=== PATIENT | male | born 1950 | race Caucasian/White ===

== ENCOUNTER → 2016-11-15 | Outpatient (CLI) | payer OTHER | LOC: MMPC 09:00 | DX: E80.21 Acute intermittent (hepatic) porphyria (principal); I10 Essential (primary) hypertension; E55.9 Vitamin D deficiency, unspecified; E66.9 Obesity, unspecified; G47.33 Obstructive sleep apnea (adult) (pediatric); N20.2 Calculus of kidney with calculus of ureter; F32.9 Major depressive disorder, single episode, unspecified; G25.81 Restless legs syndrome; Z23 Encounter for immunization | CPT/HCPCS: 90732; 99213; G0463 ==

== ENCOUNTER → 2017-02-16 | Outpatient (CLI) | payer OTHER ==
--- NOTE | 2017-02-16 11:28 | DI ---
LEFT KNEE, 02/16/2017 10:45 AM: Clinical History: Left knee pain. Previous Exam: 08/13/2007. 3 views are submitted. The AP projection is a weightbearing view. The patient is status post total le ft knee replacement. The prosthetic device articulates normally. There is no evidence of loosening of the prosthetic device. Since the previous exam, calcification has developed on the medial aspect of the medial femoral condyle. This is at the location of the attachment of the medial collateral ligame nt. Reading: Status post total left knee replacement. The prosthetic device articulates normally and there is no e vidence of loosening of the prosthetic device.
== END ==
LOC: ORTHO 11:25
PROVIDERS: ATTEND Orthopaedic Surgery
DX: M25.562 Pain in left knee (principal); M25.462 Effusion, left knee; Z96.652 Presence of left artificial knee joint
CPT/HCPCS: 73562; 99203

== ENCOUNTER → 2017-02-16 | Outpatient (CLI) | payer OTHER ==
[2017-02-16 11:54] LABS: HEMATOCRIT 44.9 % (42.0-52.0); HEMOGLOBIN 16.3 g/dL (14.0-18.0); MEAN CORPUSCULAR HEMOGLOBIN 29.7 PG (27-31); MEAN CORPUSCULAR HGB CONC 36.3 g/dL (33-37); MEAN CORPUSCULAR VOLUME 81.8 FL (80-90); MEAN PLATELET VOLUME 9.9 FL (7.4-12.2); RED BLOOD COUNT 5.49 10^6/uL (4.70-6.10)
[2017-02-20 14:27] LABS: INTERPRETATION SEE COMMENTS (())
== END ==
LOC: LAB 11:33
PROVIDERS: ATTEND Orthopaedic Surgery
DX: E80.21 Acute intermittent (hepatic) porphyria (principal); M25.562 Pain in left knee; M25.462 Effusion, left knee; Z96.652 Presence of left artificial knee joint
CPT/HCPCS: 36415; 84311; 85027; 85652; 86140; G0463; 73562; 99203

== ENCOUNTER → 2017-03-01 | Outpatient (CLI) | payer OTHER ==
[2017-03-06 17:28] LABS: URINE VOLUME 1140
== END ==
LOC: LAB 15:23
DX: E80.21 Acute intermittent (hepatic) porphyria (principal)
CPT/HCPCS: 84110; 84120

== ENCOUNTER → 2017-04-05 | Outpatient (CLI) | payer OTHER | LOC: MMPC 11:11 | DX: E80.20 Unspecified porphyria (principal); E55.9 Vitamin D deficiency, unspecified; E22.0 Acromegaly and pituitary gigantism; E78.5 Hyperlipidemia, unspecified; N20.0 Calculus of kidney; G47.33 Obstructive sleep apnea (adult) (pediatric) | CPT/HCPCS: 99213; G0463 ==

== ENCOUNTER → 2017-04-13 | Outpatient (CLI) | payer OTHER ==
[2017-04-13 10:14] LABS: HEMOGLOBIN A1C 5.12 % (4.2-6.0)
[2017-04-13 10:22] LABS: BLOOD UREA NITROGEN 14 mg/dL (7-22); CALCIUM 8.8 mg/dL (8.7-10.7); EST GLOMERULAR FILTRATION > 60 (>60 ml/min/1.73m(2))
[2017-04-13 10:28] LABS: BILIRUBIN,URINE NEGATIVE (NEG); CLARITY,URINE CLEAR (CLEAR); COLOR,URINE YELLOW; GLUCOSE, URINE (UA) NEGATIVE (NEG); NITRATE,URINE NEGATIVE (NEG); OCCULT BLOOD,URINE NEGATIVE (NEG); PH,URINE 5.5 (5.0-8.5); PROTEIN,URINE NEGATIVE (NEG); UROBILINOGEN,URINE 0.2 mg/dL (0.2)
[2017-04-13 10:32] LABS: CHOL/HDL RATIO 5.51 RATIO (0-4.0); LDL CHOLESTEROL,CALCULATED 67.6 mg/dL
[2017-04-13 10:51] LABS: VITAMIN D 25-HYDROXY 63.3 NG/ML (30-100)
[2017-04-13 12:11] LABS: SQUAMOUS EPITHELIAL CELL,UR FEW; URINE SAMPLE TYPE VOIDED SPECIMEN; WBC,URINE 0-1
[2017-04-17 16:47] LABS: IGF1 ZSCORE 0.84 SD (())
== END ==
LOC: LAB 09:02
PROVIDERS: ATTEND Internal Medicine Endocrinology, Diabetes & Metabolism
DX: E03.9 Hypothyroidism, unspecified (principal); I10 Essential (primary) hypertension; E55.9 Vitamin D deficiency, unspecified; E22.0 Acromegaly and pituitary gigantism; E23.0 Hypopituitarism; E78.5 Hyperlipidemia, unspecified; N20.0 Calculus of kidney; Z12.5 Encounter for screening for malignant neoplasm of prostate
CPT/HCPCS: 36415; 80053; 80061; 81001; 82306; 83003; 83036; 84305; 84439; G0103